=== PATIENT | male | born 1935 | race Caucasian/White ===

== ENCOUNTER 2018-09-18 15:49 | Inpatient (IN) | payer BC ==
[~2018-09-18] VITALS: Ht 188 cm; Wt 111.1 kg
[~2018-09-18 15:49] MED LIST: APAP650 PO; ARTHRITIS PAIN650 M2 PO; ASA81BEC PO; ASPIRIN EC81 M1 PO; CARDURA PO; CARDURA8 MG PO; CEFDINIR300 MG; CEFTIN500 MG PO; CIPROFLOXACIN500 M3 PO; CLARINEX2.5 MG; CLOTRIMAZOLE-BE15 GM TOP; COUMADIN PO; COUMADIN7.5 MG PO; EPIPEN0.3 MG/0.1 IM; FINASTERIDE PO; FINASTERIDE5 MG PO; FLOMAX; FLOMAX PO; GABAPENTIN PO; HYDROCHLOROTH12.5 M2 PO; HYDROCODON-ACE1 EA10 OR; HYDROCODON-ACE1 EACH PO; HYDROCODONE; KLOR-CON 10 ER10 MEQ PO; KLOR-CON 1010 MEQ PO; LISINOPRIL-HCT1 EACH OR; LISINOPRIL-HCT1 EACH PO; LISINOPRIL10 MG; LORATIDINE 10 M10 M1 PO; NEURONTIN 300M300 M2 PO; OMEPRAZOLE PO; OMEPRAZOLE20 M2 PO; OMEPRAZOLE20 MG OR; OPTIVE EYE DROP30 ML; OXECTA5 MG; OXYBUTYNIN 5 MG5 M2 PO; OXYBUTYNIN PO; OXYCODONE HCL 55 MG PO; PERCOCET 5-3251 EACH; POTASSIUM PO; POTASSIUM20 OR; PRAVACHOL40 MG PO; PRAVASTATIN SOD40 MG PO; PROTONIX40 M2; RANITIDINE PO; VICODIN 5-5001 EACH PO; ZANTAC 150MG T150 M1 OR; ZANTAC 150MG T150 M1 PO
[2018-09-18 15:54] VITALS: BP 129/70
[2018-09-18 16:20] LABS: ABSOLUTE BASOPHILS 0.1 thou/uL (0.0-0.2); ABSOLUTE EOSINOPHILS 0.1 thou/uL (0.0-0.7); ABSOLUTE LYMPHOCYTES 0.8 thou/uL (0.8-5.3); ABSOLUTE MONOCYTES 0.7 thou/uL (0.0-1.2); ABSOLUTE NEUTROPHILS 4.3 thou/uL (1.6-8.1); BASOPHILS 0.8 %; EOSINOPHILS 2.4 %; HEMATOCRIT 45.3 % (42.0-52.0); HEMOGLOBIN 15.3 gm/dL (14.0-18.0); LYMPHOCYTES 12.9 %; MCH 32.7 pg (26.0-34.0); MCHC 33.8 g/dL (28.0-37.0); MCV 96.6 fL (80.0-100.0); MONOCYTES 11.3 %; MPV 7.2 fl. (7.2-11.1); NUCLEATED RBCS 0 /100WBC; PLATELET COUNT* 131 thou/uL (150-400); POLYS 72.6 %; RBC 4.68 mil/uL (4.50-6.00)
[2018-09-18 16:41] LABS: ANION GAP 7 mmol/L (7-16); BUN 16 mg/dL (7-18); CALCIUM 8.7 mg/dL (8.5-10.1); CHLORIDE 102 mmol/L (98-107); CO2 30 mmol/L (21-32); CREATININE 1.5 mg/dL (0.6-1.3); GLUCOSE 108 mg/dL (70-99); POTASSIUM 4.1 mmol/L (3.5-5.1); SODIUM 139 mmol/L (136-145); TROPONIN-I LEVEL <0.06 ng/mL (<0.06)
[2018-09-18 16:43] LABS: ALBUMIN 3.3 g/dL (3.4-5.0); ALKALINE PHOSPHATASE 82 U/L (46-116); NT-PRO BRAIN NAT PEPTIDE 165 pg/mL (<300); SGOT 23 U/L (15-37); SGPT 20 U/L (30-65); TOTAL BILIRUBIN 0.9 mg/dL (<0.1-1.0); TOTAL PROTEIN 7.1 g/dL (6.4-8.2)
[2018-09-18 18:35] LABS: URINE BILIRUBIN NEGATIVE (Negative); URINE BLOOD NEGATIVE (Negative); URINE CLARITY CLEAR; URINE COLOR YELLOW; URINE GLUCOSE-RANDOM NEGATIVE (Negative); URINE KETONES NEGATIVE (Negative); URINE LEUKOCYTES-REFLEX NEGATIVE (Negative); URINE NITRITE-REFLEX NEGATIVE (Negative); URINE PROTEIN NEGATIVE (Negative); URINE SPECIFIC GRAVITY <= 1.005 (1.005-1.030); URINE UROBILINOGEN 0.2 E.U./dl (0.2-1.0)
[2018-09-18 19:00] LABS: INFLUENZA A ANTIGEN None Detected (None Detect); INFLUENZA B ANTIGEN None Detected (None Detect)
[2018-09-18 19:02] LABS: INR 1.9
[2018-09-18 20:45] VITALS: BP 141/78
[2018-09-18 21:30] VITALS: BP 141/78
[2018-09-19] VITALS (7 sets, daily range): BP systolic 115–144; BP diastolic 61–83
[2018-09-19 05:25] LABS: ABSOLUTE EOSINOPHILS 0.2 thou/uL (0.0-0.7); ABSOLUTE LYMPHOCYTES 1.6 thou/uL (0.8-5.3); ABSOLUTE MONOCYTES 0.7 thou/uL (0.0-1.2); ABSOLUTE NEUTROPHILS 3.3 thou/uL (1.6-8.1); BASOPHILS 0.8 %; EOSINOPHILS 2.7 %; HEMATOCRIT 41.1 % (42.0-52.0); LYMPHOCYTES 27.2 %; MCHC 34.1 g/dL (28.0-37.0); MCV 96.6 fL (80.0-100.0); MONOCYTES 11.9 %; MPV 7.6 fl. (7.2-11.1); NUCLEATED RBCS 0 /100WBC; PLATELET COUNT* 125 thou/uL (150-400); POLYS 57.4 %; RBC 4.26 mil/uL (4.50-6.00); RDW-CV 13.9 % (10.5-14.5); WBC 5.8 thou/uL (4.0-11.0)
[2018-09-19 05:29] LABS: INR 1.6; PROTIME 16.5 Seconds (9.20-11.50)
[2018-09-19 05:33] LABS: CALCIUM 8.1 mg/dL (8.5-10.1); CREATININE 1.4 mg/dL (0.6-1.3); POTASSIUM 3.8 mmol/L (3.5-5.1)
--- NOTE | 2018-09-19 10:39 | EKG ---
[place] [address] ELECTROCARDIOGRAM REPORT Name: SUE SALMON Room: [address] IN [facility].#: [id number] Admission: 09/18/18 Attend Phys: Denys Galeana MD Discharge: Date of : 39 Report #: [id number] THIS REPORT FOR: //name// [facility] ED Test Date: 2018-09-18 Test Time: 16:05:44 Pat Name: [facility] Department: Room: [facility] Gender: Stitch Wheeler: Christiane MATTHEWS : 1935 Requested By: Job Lopez Order Number: [id number] MD: Dusty López Measurements Intervals [place] Rate: 83 P: NE: 157 QRS: -17 QRSD: 111 T: 39 QT: 396 QTc: 466 Interpretive Statements Atrial-paced complexes Multiple ventricular premature complexes Incomplete RBBB and LAFB Compared to ECG 01/28/2014 19:36:11 Ventricular premature complex(es) now present Electronically Signed On 09-19-2018 10:39:39 CDT by Dusty López [email or web address] <ELECTRONICALLY SIGNED> By: Dusty López MD, FACC 09/19/18 1039 1605 1605 Dusty López MD, [facility] /EPI
[2018-09-20] VITALS: BP 132/64
[2018-09-20 04:00] VITALS: BP 135/81
[2018-09-20 04:55] LABS: ABSOLUTE EOSINOPHILS 0.1 thou/uL (0.0-0.7); ABSOLUTE LYMPHOCYTES 1.2 thou/uL (0.8-5.3); ABSOLUTE MONOCYTES 0.6 thou/uL (0.0-1.2); ABSOLUTE NEUTROPHILS 4.4 thou/uL (1.6-8.1); BASOPHILS 0.4 %; EOSINOPHILS 2.2 %; HEMATOCRIT 42.4 % (42.0-52.0); HEMOGLOBIN 14.3 gm/dL (14.0-18.0); LYMPHOCYTES 19.2 %; MCH 32.5 pg (26.0-34.0); MCHC 33.8 g/dL (28.0-37.0); MCV 96.3 fL (80.0-100.0); MPV 7.4 fl. (7.2-11.1); NUCLEATED RBCS 0 /100WBC; PLATELET COUNT* 125 thou/uL (150-400); POLYS 68.2 %; WBC 6.5 thou/uL (4.0-11.0)
[2018-09-20 05:20] LABS: CALCIUM 8.8 mg/dL (8.5-10.1); CREATININE 1.4 mg/dL (0.6-1.3)
[2018-09-20 05:32] LABS: INR 1.3; PROTIME 13.2 Seconds (9.20-11.50)
[2018-09-20 08:14] VITALS: BP 151/86
[2018-09-20 10:00] VITALS: BP 151/86
[2018-09-20 11:25] VITALS: BP 151/86
[2018-09-20] MEDS ORDERED: DOXYCYCLINE 10100 MG PO (11:52)
[2018-09-20] MEDS ORDERED: MUCINEX1200 MG PO (11:52)
[2018-09-20 12:00] VITALS: BP 141/78
== END 2018-09-20 13:54 | disposition home or self-care (01) | DRG 177 ==
LOC: M.ERS 15:49 → M.TBA-ER 18:50 → M.2W 18:50
PROVIDERS: Emergency Medicine Emergency Medical Services; ADMIT Internal Medicine
DX: J15.6 Pneumonia due to other Gram-negative bacteria (principal); J96.00 Acute respiratory failure, unspecified whether with hypoxia or hypercapnia; N17.9 Acute kidney failure, unspecified; R65.10 Systemic inflammatory response syndrome (SIRS) of non-infectious origin without acute organ dysfunction; K21.9 Gastro-esophageal reflux disease without esophagitis; M19.90 Unspecified osteoarthritis, unspecified site; I95.0 Idiopathic hypotension; E11.22 Type 2 diabetes mellitus with diabetic chronic kidney disease; I12.9 Hypertensive chronic kidney disease with stage 1 through stage 4 chronic kidney disease, or unspecified chronic kidney disease; B34.9 Viral infection, unspecified; D69.6 Thrombocytopenia, unspecified; N18.9 Chronic kidney disease, unspecified; Z79.01 Long term (current) use of anticoagulants; Z86.711 Personal history of pulmonary embolism; Z88.5 Allergy status to narcotic agent; Z88.8 Allergy status to other drugs, medicaments and biological substances; Z88.6 Allergy status to analgesic agent; Z79.899 Other long term (current) drug therapy; Z87.891 Personal history of nicotine dependence

== ENCOUNTER 2019-06-12 17:27 | Emergency (ER) | payer BC ==
[~2019-06-12] VITALS: Ht 188 cm; Wt 108.9 kg
[~2019-06-12 17:27] MED LIST changes: +DOXYCYCLINE 10100 MG PO; +MUCINEX1200 MG PO
[2019-06-12] MEDS ORDERED: PROTONIX40 M4 PO (17:52)
[2019-06-12] MEDS ORDERED: MELOXICAM15 MG PO (17:52)
[2019-06-12] MEDS ORDERED: FLOMAX0.4 MG PO (17:52)
[2019-06-12 19:29] LABS: ABSOLUTE BASOPHILS 0.1 thou/uL (0.0-0.2); ABSOLUTE EOSINOPHILS 0.3 thou/uL (0.0-0.7); ABSOLUTE LYMPHOCYTES 1.8 thou/uL (0.8-5.3); ABSOLUTE MONOCYTES 0.6 thou/uL (0.0-1.2); ABSOLUTE NEUTROPHILS 3.3 thou/uL (1.6-8.1); EOSINOPHILS 4.4 %; HEMATOCRIT 42.3 % (42.0-52.0); HEMOGLOBIN 14.3 gm/dL (14.0-18.0); LYMPHOCYTES 29.1 %; MCH 32.5 pg (26.0-34.0); MCHC 33.7 g/dL (28.0-37.0); MCV 96.2 fL (80.0-100.0); MONOCYTES 10.6 %; MPV 7.5 fl. (7.2-11.1); NUCLEATED RBCS 0 /100WBC; PLATELET COUNT* 151 thou/uL (150-400); POLYS 54.9 %; RBC 4.39 mil/uL (4.50-6.00); RDW-CV 14.3 % (10.5-14.5)
[2019-06-12 19:32] LABS: CALCIUM 9.4 mg/dL (8.5-10.1); CREATININE 1.2 mg/dL (0.6-1.3); INR 2.6; POTASSIUM 3.9 mmol/L (3.5-5.1); PROTIME 25.9 Seconds (9.20-11.50)
[2019-06-12 19:33] LABS: URINE BILIRUBIN NEGATIVE (Negative); URINE BLOOD 3+ (Negative); URINE GLUCOSE-RANDOM NEGATIVE (Negative); URINE KETONES NEGATIVE (Negative); URINE LEUKOCYTES-REFLEX NEGATIVE (Negative); URINE NITRITE-REFLEX NEGATIVE (Negative); URINE PROTEIN 1+ (Negative); URINE UROBILINOGEN 0.2 E.U./dl (0.2-1.0)
[2019-06-12 19:35] LABS: URINE CLARITY HAZY; URINE COLOR RED
[2019-06-12 19:36] LABS: ALBUMIN 3.4 g/dL (3.4-5.0); TOTAL BILIRUBIN 0.7 mg/dL (<0.1-1.0)
[2019-06-12 19:38] LABS: BACTERIA-REFLEX None Seen /HPF (None Seen); CASTS None Seen /LPF (None Seen); CRYSTALS None Seen /LPF (None Seen); SQUAMOUS 0-3 Few /LPF (0-3); URINE RBC >20 Many /HPF (0-2); URINE WBC-REFLEX None Seen /HPF (0-5)
[2019-06-12] MEDS ORDERED: CIPROFLOXACIN500 M1 PO (20:55)
[2019-06-12 21:07] VITALS: BP 124/68
== END 2019-06-12 21:09 | disposition home or self-care (01) ==
LOC: M.ERS 17:27
PROVIDERS: Emergency Medicine
DX: R30.0 Dysuria (principal); I10 Essential (primary) hypertension; M19.90 Unspecified osteoarthritis, unspecified site; K21.9 Gastro-esophageal reflux disease without esophagitis; G47.30 Sleep apnea, unspecified; Z86.711 Personal history of pulmonary embolism; Z98.890 Other specified postprocedural states; Z88.6 Allergy status to analgesic agent; Z88.5 Allergy status to narcotic agent; Z88.8 Allergy status to other drugs, medicaments and biological substances